=== PATIENT | female | born 1995 | race Caucasian/White ===

== ENCOUNTER 2016-08-09 15:09 | Emergency (ER) | payer OTHER ==
--- NOTE | 2016-08-09 17:19 | RAD ---
LOWER LEG LEFT COMPARISON: HISTORY: Lower leg pain from a fall yesterday. FINDINGS: Views: Left tibia-fibula and lateral. Bones: Normal. Joints: Normal. Soft tissues: Normal. IMPRESSION: 1. Normal study.
== END 2016-08-09 17:53 | disposition home or self-care (01) ==
LOC: ED 15:09
DX: S80.12XA Contusion of left lower leg, initial encounter (principal); S09.90XA Unspecified injury of head, initial encounter; V80.010A Animal-rider injured by fall from or being thrown from horse in noncollision accident, initial encounter; Y93.52 Activity, horseback riding